=== PATIENT | female | born 1985 | race African-American/Black ===

== ENCOUNTER → 2020-02-05 09:11 | Outpatient (BNVA) | payer OTHER, SELFPAY | PROVIDERS: PCP Nurse Practitioner Family; Referring Provider Nurse Practitioner Family; Visit Provider Advanced Practice Midwife | DX: Z30.09 Encounter for other general counseling and advice on contraception (principal) | CPT/HCPCS: 99212 ==

== ENCOUNTER 2020-02-11 08:41 | Outpatient (REF) | payer OTHER, SELFPAY | END 2020-02-11 08:42 | disposition home or self-care (01) | LOC: HO.LAB 08:41 | PROVIDERS: Visit Provider Internal Medicine | DX: Z20.828 Contact with and (suspected) exposure to other viral communicable diseases (principal) | CPT/HCPCS: C9803; U0003 ==

== ENCOUNTER 2020-02-26 11:22 | Outpatient (REF) | payer OTHER, SELFPAY ==
[2020-02-26 12:47] LABS: MANUAL DIFF FLAG NO
[2020-02-26 13:01] LABS: Basophils Absolute Auto 0.1 X10*3/uL (0.0-0.2); Basophils Percent Auto 0.9 % (0-2); Eosinophils Percent Auto 0.4 % (0-4); Hematocrit 37.7 % (37-47); Hemoglobin 12.9 g/dl (12.0-16.0); Imm Gran Abs Auto 0.02 X10*3/uL (0.00-0.03); Imm Gran Pct Auto 0.2 % (0.0-0.4); Lymphocytes Absolute Auto 2.7 X10*3/uL (1.2-4.9); Lymphocytes Percent Auto 31.8 % (20-40); Mean Corpuscular HGB Conc 34.2 g/dl (31.0-35.0); Mean Corpuscular Hemoglobin 28.9 pg (27.0-33.0); Mean Corpuscular Volume 84.5 fL (80-98); Mean Platelet Volume 9.8 fL (9.4-12.3); Monocytes Absolute Auto 0.6 X10*3/uL (0.1-1.2); Monocytes Percent Auto 7.5 % (2-11); Neutrophils Percent Auto 59.2 % (45-73); Platelet Count 351 X10*3/uL (160-400); Red Blood Count 4.46 X10*6/uL (4.20-5.50); Red Cell Distribution Width 13.7 % (11.0-16.0); White Blood Count 8.5 X10*3/uL (4.8-10.8)
[2020-02-26 13:42] LABS: Anion Gap 12 (12-20); Blood Urea Nitrogen 8 mg/dL (9-16); Calcium 8.9 mg/dL (8.4-10.2); Carbon Dioxide 25 mmol/L (22-29); Chloride 104 mmol/L (96-108); Cholesterol 210 mg/dL; Estimated Glomerular Filt Rate > 60; Glucose Fasting 69 mg/dL (60-99); HDL Cholesterol 54 mg/dL; LDL Cholesterol Calculated 149 mg/dl; Potassium 4.3 mmol/l (3.3-5.1); Sodium 137 mmol/L (135-145); Triglycerides 39 mg/dL
== END 2020-02-26 11:23 | disposition home or self-care (01) ==
LOC: HO.LAB 11:22
PROVIDERS: PCP Nurse Practitioner Family; Visit Provider Nurse Practitioner Family
DX: Z00.00 Encounter for general adult medical examination without abnormal findings (principal)
CPT/HCPCS: 36415; 80048; 80061; 85025

== ENCOUNTER 2020-06-03 15:19 | Outpatient (REF) | payer OTHER, SELFPAY ==
[2020-06-04 18:07] LABS: C. trachomatis RNA TMA NOT DETECTED (NOT DETECTED); N. gonorrhoeae RNA TMA NOT DETECTED (NOT DETECTED)
== END 2020-06-03 15:20 | disposition home or self-care (01) ==
LOC: HO.LAB 15:19
PROVIDERS: PCP Nurse Practitioner Family; Visit Provider Advanced Practice Midwife
DX: Z30.430 Encounter for insertion of intrauterine contraceptive device (principal)
CPT/HCPCS: 36415; 58300; 87491; 87591; J7296

== ENCOUNTER → 2020-07-19 13:53 | Outpatient (BNVA) | payer OTHER, SELFPAY | PROVIDERS: PCP Nurse Practitioner Family; Visit Provider Advanced Practice Midwife | DX: Z30.431 Encounter for routine checking of intrauterine contraceptive device (principal); N89.8 Other specified noninflammatory disorders of vagina | CPT/HCPCS: 99212 ==

== ENCOUNTER 2020-09-18 21:39 | Emergency (ER) | payer OTHER, SELFPAY ==
--- NOTE | 2020-09-18 | ECG_ITS ---
Test Reason : C Blood Pressure : / mmHG Vent. Rate : 083 BPM Atrial Rate : 083 BPM P-R Int : 138 ms QRS Dur : 078 ms QT Int : 360 ms P-R-T Axes : 000 039 013 degrees QTc Int : 423 ms Normal sinus rhythm Normal ECG No previous ECGs available Referred By: Generic ED Physician Electronically Signed By:SARAH HASSAN
[2020-09-18 21:41] VITALS: BP 169/98; PULSE 85; RESP 18; TEMP 36.6; O2SAT 100; BMI 30.7
[2020-09-18 22:02] LABS: MANUAL DIFF FLAG NO
[2020-09-18 22:04] LABS: Basophils Absolute Auto 0.1 X10*3/uL (0.0-0.2); Basophils Percent Auto 0.9 % (0-2); Eosinophils Absolute Auto 0.1 X10*3/uL (0.0-0.4); Eosinophils Percent Auto 0.9 % (0-4); Hematocrit 35.8 % (37-47); Hemoglobin 12.4 g/dl (12.0-16.0); Imm Gran Abs Auto 0.04 X10*3/uL (0.00-0.03); Imm Gran Pct Auto 0.3 % (0.0-0.4); Lymphocytes Absolute Auto 3.7 X10*3/uL (1.2-4.9); Lymphocytes Percent Auto 31.5 % (20-40); Mean Corpuscular HGB Conc 34.6 g/dl (31.0-35.0); Mean Corpuscular Volume 83.8 fL (80-98); Mean Platelet Volume 9.9 fL (9.4-12.3); Monocytes Absolute Auto 0.9 X10*3/uL (0.1-1.2); Neutrophils Absolute Auto 6.8 X10*3/uL (2.0-8.3); Neutrophils Percent Auto 58.4 % (45-73); Platelet Count 290 X10*3/uL (160-400); Red Blood Count 4.27 X10*6/uL (4.20-5.50); Red Cell Distribution Width 13.2 % (11.0-16.0); White Blood Count 11.7 X10*3/uL (4.8-10.8)
[2020-09-18 22:27] LABS: Alanine Aminotransferase 18 U/L (0-31); Albumin Level 4.2 g/dL (3.5-5.0); Alkaline Phosphatase 44 U/L (39-117); Anion Gap 11 (12-20); Aspartate Amino Transferase 16 U/L (5-31); Bilirubin Total 0.2 mg/dL (0.0-1.0); Blood Urea Nitrogen 15 mg/dL (9-16); Calcium 9.2 mg/dL (8.4-10.2); Carbon Dioxide 25 mmol/L (22-29); Chloride 108 mmol/L (96-108); Creatinine Clr Calc Pharmacy 69.2; Estimated Glomerular Filt Rate > 60; Glucose Random 74 mg/dL (60-115); Potassium 4.1 mmol/L (3.3-5.1); Sodium 140 mmol/L (135-145); Total Protein 6.5 g/dL (6.5-8.0)
[2020-09-18 22:29] LABS: Troponin-I High Sensitivity < 3.5 ng/L (<3.5-17.0)
== END 2020-09-18 23:24 | disposition left against medical advice (07) ==
PROVIDERS: Emergency Provider Emergency Medicine; PCP Internal Medicine
DX: R07.9 Chest pain, unspecified (principal); I10 Essential (primary) hypertension; Z79.899 Other long term (current) drug therapy
CPT/HCPCS: 36415; 80053; 84484; 85025; 93005; 99283

== ENCOUNTER 2020-10-03 10:09 | Outpatient (REF) | payer OTHER, SELFPAY ==
[2020-10-03 11:16] LABS: Cholesterol 208 mg/dL; HDL Cholesterol 52 mg/dL; LDL Cholesterol Calculated 140 mg/dl; Triglycerides 82 mg/dL
[2020-10-03 11:38] LABS: Thyroid Stimulating Hormone 0.53 uIU/mL (0.32-4.0)
== END 2020-10-03 10:10 | disposition home or self-care (01) ==
LOC: HO.LAB 10:09
PROVIDERS: PCP Internal Medicine; Visit Provider Internal Medicine
DX: E03.9 Hypothyroidism, unspecified (principal); E11.9 Type 2 diabetes mellitus without complications
CPT/HCPCS: 36415; 80061; 84443

== ENCOUNTER 2020-11-16 14:43 | Outpatient (REF) | payer OTHER, SELFPAY ==
[2020-11-17 04:19] LABS: CT PCR NOT DETECTED (Not Detect.); NG PCR NOT DETECTED (Not Detect.)
[2020-11-17 09:25] LABS: BV Int Neg Control Negative (Negative); BV Int Pos Control Positive (Positive)
== END 2020-11-16 14:44 | disposition home or self-care (01) ==
LOC: HO.LAB 14:43
PROVIDERS: Visit Provider Advanced Practice Midwife
DX: Z01.419 Encounter for gynecological examination (general) (routine) without abnormal findings (principal); N73.9 Female pelvic inflammatory disease, unspecified; Z30.432 Encounter for removal of intrauterine contraceptive device; Z20.2 Contact with and (suspected) exposure to infections with a predominantly sexual mode of transmission
CPT/HCPCS: 58301; 87480; 87491; 87510; 87591; 87660; 96372; 99212; J0696

== ENCOUNTER → 2020-12-06 09:13 | Outpatient (BNVA) | payer OTHER, SELFPAY | PROVIDERS: PCP Internal Medicine; Visit Provider Dietitian, Registered | DX: E66.9 Obesity, unspecified (principal); Z68.31 Body mass index [BMI] 31.0-31.9, adult | CPT/HCPCS: 97802 ==

== ENCOUNTER 2020-12-22 09:54 | Outpatient (REF) | payer OTHER, SELFPAY ==
--- NOTE | ~2020-12-22 | XR_ITS ---
EXAMINATION: XR CALCANEUS, LEFT CLINICAL INFORMATION: Pain in left foot COMPARISON: None TECHNIQUE: Lateral and axial views of the left calcaneus were obtained. FINDINGS: The visualized tarsal bones and metatarsal bases are intact. No fractures. No focal lytic or blastic lesion. The joint spaces are maintained in the visualized ankle and proximal foot. No evidence of tarsal coalition. There is a small plantar calcaneal enthesophyte. No radiopaque foreign body or focal soft tissue swelling. XR/XR calcaneus LT min 2V IMPRESSION: * Small plantar calcaneal enthesophyte is noted. * No evidence of calcaneal fracture.
== END 2020-12-22 09:55 | disposition home or self-care (01) ==
LOC: HO.XRAY 09:54
PROVIDERS: PCP Internal Medicine; Visit Provider Physician Assistant
DX: M79.672 Pain in left foot (principal)
CPT/HCPCS: 73650

== ENCOUNTER 2021-03-23 09:14 | Outpatient (REF) | payer OTHER, SELFPAY ==
[2021-03-23 12:14] LABS: Thyroid Stimulating Hormone 1.09 uIU/mL (0.32-4.0)
[2021-03-24 16:31] LABS: Calcium (PTHI) 9.5 mg/dL (8.6-10.2); PTHI 54 pg/mL (14-64)
[2021-03-25 02:32] LABS: Follicle Stimulating Hormone 5.1 mIU/mL; Lutenizing Hormone 2.1 mIU/mL; Prolactin 6.5 ng/mL
== END 2021-03-23 09:15 | disposition home or self-care (01) ==
LOC: HO.HMGCLDS 09:14
PROVIDERS: PCP Internal Medicine; Visit Provider Physician Assistant
DX: O92.70 Unspecified disorders of lactation (principal)
CPT/HCPCS: 36415; 83001; 83002; 83970; 84146; 84443

== ENCOUNTER 2021-08-01 15:47 | Outpatient (REF) | payer OTHER, SELFPAY ==
--- NOTE | ~2021-08-01 | US_ITS ---
EXAMINATION: ULTRASOUND EXTREMITY NONVASCULAR CLINICAL INFORMATION: Left thigh muscle strain/hamstring injury COMPARISON: None TECHNIQUE: Scale and color imaging of the soft tissues of the left upper posterior thigh using a linear transducer. Comparison imaging of the right thigh was also performed. FINDINGS: No abnormality is evident by ultrasound. No fluid collection, abnormal echotexture or mass is seen. US/US extremity nonvascular IMPRESSION: No abnormality seen by ultrasound.
== END 2021-08-01 15:48 | disposition home or self-care (01) ==
LOC: HO.US 15:47
PROVIDERS: Visit Provider Physician Assistant
DX: S76.312A Strain of muscle, fascia and tendon of the posterior muscle group at thigh level, left thigh, initial encounter (principal)
CPT/HCPCS: 76882

== ENCOUNTER 2021-09-19 12:09 | Outpatient (REF) | payer OTHER, SELFPAY ==
--- NOTE | ~2021-09-19 | XR_ITS ---
EXAMINATION: XR KNEE, RIGHT CLINICAL INFORMATION: Medial meniscal tear. Current injury. COMPARISON: None TECHNIQUE: Three views of the right knee. FINDINGS: No fracture, dislocation, destructive process, or suprapatellar effusion. Small benign oval mineralization or ossification overlies the medial side deep infrapatellar recess. Hoffa's fat pad appears normal. There is spurring from the medial femoral condyle and borderline spurring medial tibial plateau. No joint narrowing or erosive change or chondrocalcinosis. Axial view patella shows no lateralization, tilting, or focal joint narrowing. Small lateral patellar spur. XR/XR knee RT 3V IMPRESSION: -Spurring medial knee joint compartment. -No focal joint narrowing or erosive change. No effusion.
== END 2021-09-19 12:10 | disposition home or self-care (01) ==
LOC: HO.XRAY 12:09
PROVIDERS: PCP Internal Medicine; Visit Provider Physician Assistant
DX: S83.241A Other tear of medial meniscus, current injury, right knee, initial encounter (principal); X58.XXXA Exposure to other specified factors, initial encounter; Y93.9 Activity, unspecified; Y92.9 Unspecified place or not applicable; Y99.8 Other external cause status
CPT/HCPCS: 73562

== ENCOUNTER 2021-09-20 12:41 | Outpatient (REF) | payer OTHER, SELFPAY ==
[2021-09-20 13:37] LABS: Appearance Urine HAZY; Color Urine YELLOW; Glucose Urine UA NEG (NEG); Leukocyte Esterase Urine TRACE (NEG); Nitrite Urine NEG (NEG); Urine Blood NEG (NEG); Urine Ketones NEG (NEG); Urine Protein NEG (NEG-TRACE)
[2021-09-20 13:58] LABS: RBC Urine 0 /HPF (0); Squamous Epithelial Cell Urine 1+ /LPF
[2021-09-20 14:19] LABS: Amphetamine Screen Urine Not Detected (Not Detect); Barbiturates, Urine Not Detected (Not Detect); Benzodiazepines Screen Urine Not Detected (Not Detect); Cannabinoid Screen Urine Not Detected (Not Detect); Cocaine Screen Urine Not Detected (Not Detect); Fentanyl, urine Not Detected (Not Detect); Opiate Screen Urine Not Detected (Not Detect); Phencyclidine Screen Urine Not Detected (Not Detect)
[2021-09-20 14:32] LABS: Alanine Aminotransferase 18 U/L (0-31); Albumin Level 4.4 g/dL (3.5-5.0); Alkaline Phosphatase 38 U/L (39-117); Anion Gap 9 (12-20); Aspartate Amino Transferase 17 U/L (5-31); Bilirubin Total 0.4 mg/dL (0.0-1.0); Blood Urea Nitrogen 12 mg/dL (9-16); Calcium 9.2 mg/dL (8.4-10.2); Carbon Dioxide 27 mmol/L (22-29); Chloride 106 mmol/L (96-108); Estimated Glomerular Filt Rate > 60; Glucose Random 77 mg/dL (60-115); Potassium 4.4 mmol/L (3.3-5.1); Sodium 138 mmol/L (135-145); Total Protein 6.9 g/dL (6.5-8.0)
[2021-09-20 14:38] LABS: Estimated Average Glucose 88 mg/dL; Hemoglobin A1c % 4.7 %
[2021-09-21 08:37] LABS: HIV AB/AG Nonreactive (Nonreactive); HIV Num 1 0.07 S/CO (0.00-0.99)
== END 2021-09-20 12:42 | disposition home or self-care (01) ==
LOC: HO.HMGCLDS 12:41
PROVIDERS: PCP Internal Medicine; Visit Provider Physician Assistant
DX: Z00.00 Encounter for general adult medical examination without abnormal findings (principal)
CPT/HCPCS: 80053; 80307; 81001; 83036; 86900; 86901; 87389

== ENCOUNTER → 2021-09-21 13:10 | Outpatient (REF) | payer OTHER, SELFPAY ==
--- NOTE | 2021-09-21 | ECG_ITS ---
Test Reason : Z00.00 Blood Pressure : / mmHG Vent. Rate : 088 BPM Atrial Rate : 088 BPM P-R Int : 142 ms QRS Dur : 086 ms QT Int : 360 ms P-R-T Axes : 060 040 012 degrees QTc Int : 435 ms Normal sinus rhythm Nonspecific T wave abnormality Abnormal ECG When compared with ECG of 18-SEP-2020 21:48, No significant change was found Referred By: Joss Quiroz Electronically Signed By:C[place]er
--- NOTE | ~2021-09-21 | XR_ITS ---
EXAMINATION: XR CHEST CLINICAL INFORMATION: Adult health examination. COMPARISON: None TECHNIQUE: 2 views of the chest were obtained. FINDINGS: No significant abnormality is noted involving the heart, lungs, mediastinum, or soft tissues. Mild degenerative spondylosis related changes are noted in the spine. The visualized upper abdomen is unremarkable. XR/XR chest 2V IMPRESSION: No radiographic evidence of acute cardiopulmonary disease. 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
== END ==
LOC: HO.CARD 13:10
PROVIDERS: PCP Internal Medicine; Visit Provider Internal Medicine
DX: Z00.00 Encounter for general adult medical examination without abnormal findings (principal); R94.31 Abnormal electrocardiogram [ECG] [EKG]
CPT/HCPCS: 71046; 93005

== ENCOUNTER 2021-10-29 21:45 | Emergency (ER) | payer OTHER, SELFPAY ==
--- NOTE | 2021-10-29 21:49 | ECG_ITS ---
Test Reason : CHEST PAIN Blood Pressure : / mmHG Vent. Rate : 072 BPM Atrial Rate : 072 BPM P-R Int : 158 ms QRS Dur : 086 ms QT Int : 380 ms P-R-T Axes : 016 015 001 degrees QTc Int : 416 ms Normal sinus rhythm Minimal voltage criteria for LVH, may be normal variant ( R in aVL ) Borderline ECG No significant changes when compared with the previous EKG of 21 sep 2021 Referred By: Generic ED Physician Electronically Signed By:SARAH HASSAN
[2021-10-29 21:59] VITALS: BP 155/93; PULSE 85; RESP 18; TEMP 37.1; O2SAT 99; BMI 32.3
--- NOTE | 2021-10-29 22:16 | ED_ITS ---
HPI - Chest Pain General Chief Complaint: Chest Pain Stated Complaint: chest pain Time Seen by Provider: 10/29/21 22:16 Source: patient Mode of arrival: ambulatory Limitations: no limitations History of Present Illness HPI narrative: Patient With history of borderline hypertension no history of diabetes unknown history of known coronary disease comes here for mid chest pain started about 2 hours prior to arrival while [place] working on the computer pain localize mid chest with slight nausea no vomiting no shortness of breath no diaphoresis patient never had similar pain in the past Related Data Previous Rx's Medication Instructions Recorded atenolol 100 mg tablet 100 mg PO DAILY #30 tabs 09/19/20 norethindrone (contraceptive) 0.35 0.35 mg PO DAILY #84 tabs 11/16/20 mg tablet ibuprofen 600 mg tablet 600 mg PO Q6H PRN pain #20 tabs 10/30/21 Allergies Allergy/AdvReac Type Severity Reaction Status Date / Time No Known Allergies Allergy Verified 12/22/20 09:30 Review of Systems Review of Systems: Yes all other systems are reviewed and are negative [facility] [place] Past Medical History Medical History Encounter for intrauterine device placement Hypertension Surgical History History of mandibular surgery Family History Family History Father No problems noted. Mother No problems noted. Social History Social History Housing: House Alcohol intake: current Alcohol intake frequency: holidays/special occasions only Patient Tobacco Use Status: Former Tobacco user Tobacco use type: Cigarette Second Hand Smoke Exposure: No Advance Directives: No Advance Directives Information Provided: Yes service: Yes Current occupational status: employed Gender identity: Female Physical Exam Vital Signs: Vital Signs: Last Vital Signs Temp 98.8 F 10/29/21 23:11 Pulse 72 10/29/21 23:11 Resp 22 H 10/29/21 23:11 BP 150/75 H 10/29/21 23:11 Pulse Ox 100 10/29/21 23:11 O2 Del Method 10/29/21 23:11 BMI result Body Mass Index 32.3 Appearance: Alert. Oriented X3. No acute distress. Eyes: No pallor or icterus ENT: Pharynx normal. Oral Mucosa moist Neck: Normal inspection. Neck supple. CVS: Normal heart rate and rhythm. Pulses normal. Respiratory: Chest wall tenderness in the 2nd intercostal space bilateral, No respiratory distress. Equal air entry bilateral, no wheezing/rales/rhonchi Abdomen: Soft and nontender. Bowel sounds are present, no mass palpable, no CVA tenderness Skin: Skin warm and dry. Normal skin color. Normal skin turgor. Extremities: No lower extremity edema. No calf tenderness Neuro: Oriented X 3. No motor deficit. MDM - Chest Pain MDM Narrative Medical decision making narrative: Patient clinically with costochondritis heart score of 1 normal troponin no ischemic changes EKG will discharge patient home advised to take ibuprofen Medical Records Data Attestation: I reviewed the patient's medical records. Lab Data Attestation: I reviewed the patient's lab results. Result diagrams: 10/29/21 23:19 10/29/21 23:19 Labs: Lab Results 10/29/21 10/29/21 10/29/21 Range/Units 23:19 23:19 23:19 WBC 10.9 H (4.8-10.8) X10*3/uL RBC 4.27 (4.20-5.50) X10*6/uL Hgb 12.5 (12.0-16.0) g/dl Hct 35.3 L (37.0-47.0) % MCV 82.7 (80.0-98.0) fL MCH 29.3 (27.0-33.0) pg MCHC 35.4 H (31.0-35.0) g/dl RDW 13.2 (11.0-16.0) % Plt Count 306 (160-400) X10*3/uL MPV 9.4 (9.4-12.3) fL Immature Gran % (Auto) 0.3 (0.0-0.4) % Neut % (Auto) 63.1 (45-73) % Lymph % (Auto) 27.9 (20-40) % Smyth % (Auto) 7.1 (2-11) % Eos % (Auto) 0.7 (0-4) % Baso % (Auto) 0.9 (0-2) % Lymph # (Auto) 3.0 (1.2-4.9) X10*3/uL Smyth # (Auto) 0.8 (0.1-1.2) X10*3/uL Eos # (Auto) 0.1 (0.0-0.4) X10*3/uL Baso # (Auto) 0.1 (0.0-0.2) X10*3/uL Abs Immat Gran (auto) 0.03 (0.00-0.03) X10*3/uL Absolute Neuts (auto) 6.8 (2.0-8.3) x10*3/uL Absolute Nucleated RBC 0.000 (0.0-0.012) X10*3/uL Nucleated RBC % (auto) 0.0 (0.0-0.2) /100WBC Sodium 134 L (135-145) mmol/L Potassium 3.7 (3.3-5.1) mmol/L Chloride 105 (96-108) mmol/L Carbon Dioxide 24 (22-29) mmol/L Anion Gap 9 L (12-20) BUN 11 (9-16) mg/dL Creatinine 0.69 (0.5-1.4) mg/dL Estim Creat Clear Calc 95.9 Estimated GFR > 60 Random Glucose 93 (60-115) mg/dL Calcium 9.0 (8.4-10.2) mg/dL Troponin I High Sens < 3.5 (<3.5-17.0) ng/L ECG Data ECG #1: Attestation: I personally reviewed and interpreted this ECG as follows: Interpretation: Notes and rhythm heart rate 88 beats per minute normal interval normal axis and no acute ST-T no acute ischemia Scores Heart Score History: -0- slightly suspicious ECG: -0- normal Age: -0- < or = 45 Risk factory: -1- 1 or 2 risk factors Troponin: -0- < or = normal limit Score: 1 Risk: 1.7% Discharge Plan Discharge Clinical Impression: Chest pain, Acute costochondritis Patient Disposition: Home, Self-Care Instructions: Chest Pain (ED), Costochondritis (ED) Additional Instructions: Take ibuprofen as prescribed Follow with PCP if not better for further evaluation including stress test Prescriptions: New ibuprofen 600 mg tablet 600 mg PO Q6H PRN (Reason: pain) Qty: 20 0RF No Action atenolol 100 mg tablet 100 mg PO DAILY Qty: 30 5RF norethindrone (contraceptive) 0.35 mg tablet 0.35 mg PO DAILY Qty: 84 4RF
[2021-10-29 23:11] VITALS: BP 150/75; PULSE 72; RESP 22; TEMP 37.1; O2SAT 100
[2021-10-29 23:14] VITALS: BP 150/75; PULSE 77; RESP 18; O2SAT 97
[2021-10-29 23:24] LABS: Basophils Absolute Auto 0.1 X10*3/uL (0.0-0.2); Basophils Percent Auto 0.9 % (0-2); Eosinophils Absolute Auto 0.1 X10*3/uL (0.0-0.4); Eosinophils Percent Auto 0.7 % (0-4); Hematocrit 35.3 % (37.0-47.0); Hemoglobin 12.5 g/dl (12.0-16.0); Imm Gran Abs Auto 0.03 X10*3/uL (0.00-0.03); Imm Gran Pct Auto 0.3 % (0.0-0.4); Lymphocytes Percent Auto 27.9 % (20-40); MANUAL DIFF FLAG NO; Mean Corpuscular HGB Conc 35.4 g/dl (31.0-35.0); Mean Corpuscular Hemoglobin 29.3 pg (27.0-33.0); Mean Corpuscular Volume 82.7 fL (80.0-98.0); Mean Platelet Volume 9.4 fL (9.4-12.3); Monocytes Absolute Auto 0.8 X10*3/uL (0.1-1.2); Monocytes Percent Auto 7.1 % (2-11); Neutrophils Absolute Auto 6.8 x10*3/uL (2.0-8.3); Neutrophils Percent Auto 63.1 % (45-73); Platelet Count 306 X10*3/uL (160-400); Red Blood Count 4.27 X10*6/uL (4.20-5.50); Red Cell Distribution Width 13.2 % (11.0-16.0); White Blood Count 10.9 X10*3/uL (4.8-10.8)
[2021-10-29 23:46] LABS: Troponin-I High Sensitivity < 3.5 ng/L (<3.5-17.0)
[2021-10-29 23:47] LABS: Anion Gap 9 (12-20); Blood Urea Nitrogen 11 mg/dL (9-16); Carbon Dioxide 24 mmol/L (22-29); Chloride 105 mmol/L (96-108); Creatinine Clr Calc Pharmacy 95.9; Estimated Glomerular Filt Rate > 60; Glucose Random 93 mg/dL (60-115); Potassium 3.7 mmol/L (3.3-5.1); Sodium 134 mmol/L (135-145)
[2021-10-30] MEDS: Ibuprofen 600 MG TABLET PO (01:09)
[2021-10-30 01:13] VITALS: BP 108/54; PULSE 71; RESP 16; O2SAT 95
== END 2021-10-30 01:20 | disposition home or self-care (01) ==
PROVIDERS: Emergency Provider Internal Medicine
DX: R07.89 Other chest pain (principal); M94.0 Chondrocostal junction syndrome [Tietze]; Z87.891 Personal history of nicotine dependence; Z79.899 Other long term (current) drug therapy
CPT/HCPCS: 36415; 80048; 84484; 85025; 93005; 99284

== ENCOUNTER 2021-12-28 14:58 | Outpatient (REF) | payer OTHER, SELFPAY ==
[2021-12-28 15:18] LABS: Appearance Urine Hazy; Glucose Urine UA 100 mg/dL (Negative); Leukocyte Esterase Urine Large (3+) (Negative); UMIC TRIGGER UACC YES; Urine Blood Negative (Negative); Urine Ketones Negative (Negative); Urine Protein 30 (1+) mg/dL (Neg-Trace)
[2021-12-28 15:21] LABS: Color Urine ORANGE; Nitrite Urine Positive (Negative)
[2021-12-28 15:32] LABS: Bacteria Urine 4+ (None Seen); Hyaline Casts Urine 0-2 /LPF (0-2); UACC Culture Trigger YES
== END 2021-12-28 14:59 | disposition home or self-care (01) ==
LOC: HO.HMGCLNP 14:58
PROVIDERS: Visit Provider Physician Assistant Medical
DX: R30.0 Dysuria (principal)
CPT/HCPCS: 81001; 87086; 87088; 87186

== ENCOUNTER 2022-01-11 08:40 | Outpatient (REF) | payer OTHER, SELFPAY ==
[2022-01-12 06:22] LABS: CT PCR NOT DETECTED (Not Detect.); NG PCR NOT DETECTED (Not Detect.)
[2022-01-14 14:03] LABS: HPV mRNA E6/E7 rflx Not Detected (Not Detected)
== END 2022-01-11 08:41 | disposition home or self-care (01) ==
LOC: HO.LNP 08:40
PROVIDERS: Visit Provider Obstetrics & Gynecology
DX: Z30.09 Encounter for other general counseling and advice on contraception (principal); N93.9 Abnormal uterine and vaginal bleeding, unspecified
CPT/HCPCS: 87491; 87591; 87624; 88142; 99212

== ENCOUNTER 2022-01-23 14:20 | Outpatient (REF) | payer OTHER, SELFPAY | END 2022-01-23 14:21 | disposition home or self-care (01) | LOC: HO.LNP 14:20 | PROVIDERS: Visit Provider Obstetrics & Gynecology | DX: Z32.02 Encounter for pregnancy test, result negative (principal); Z30.430 Encounter for insertion of intrauterine contraceptive device; N93.9 Abnormal uterine and vaginal bleeding, unspecified | CPT/HCPCS: 58100; 58300; 81025; 88305; J7298 ==

== ENCOUNTER 2022-01-23 14:55 | Outpatient (REF) | payer OTHER, SELFPAY ==
[2022-01-23 15:36] LABS: Hematocrit 37.2 % (37.0-47.0); Hemoglobin 12.8 g/dl (12.0-16.0); Mean Corpuscular HGB Conc 34.4 g/dl (31.0-35.0); Mean Corpuscular Hemoglobin 27.8 pg (27.0-33.0); Mean Corpuscular Volume 80.9 fL (80.0-98.0); Mean Platelet Volume 9.9 fL (9.4-12.3); Platelet Count 351 X10*3/uL (160-400); Red Cell Distribution Width 13.9 % (11.0-16.0); White Blood Count 11.2 X10*3/uL (4.8-10.8)
[2022-01-23 15:37] LABS: Appearance Urine Clear; Color Urine Yellow; Glucose Urine UA Negative (Negative); Leukocyte Esterase Urine Negative (Negative); Nitrite Urine Negative (Negative); PH 6.5 (5.0-9.0); Specific Gravity - Urine 1.015 (1.005-1.025); Urine Blood Negative (Negative); Urine Ketones Negative (Negative); Urine Protein Negative (Neg-Trace)
[2022-01-23 16:13] LABS: HCG Quantitative < 2 mIU/mL; TSH reflex Free T4 0.66 uIU/mL (0.32-4.0)
== END 2022-01-23 14:56 | disposition home or self-care (01) ==
LOC: HO.LAB 14:55
PROVIDERS: Physician Assistant Medical; PCP Internal Medicine; Visit Provider Obstetrics & Gynecology
DX: R30.0 Dysuria (principal); N93.9 Abnormal uterine and vaginal bleeding, unspecified
CPT/HCPCS: 36415; 81003; 84443; 84702; 85027

== ENCOUNTER 2022-01-25 13:03 | Outpatient (REF) | payer OTHER, SELFPAY ==
--- NOTE | ~2022-01-25 | US_ITS ---
EXAMINATION: US PELVIS COMPLETE US PELVIS ENDOVAGINAL CLINICAL INFORMATION: Abnormal uterine and vaginal bleeding. COMPARISON: None. TECHNIQUE: Transabdominal and transvaginal images of the pelvis were obtained. FINDINGS: UTERUS: Anteverted. Normal size and contour, measuring 7.3 x 5.2 x 5.0 cm (cervix to fundus x AP x transverse). Uniform, homogeneous endometrium measures 0.5 cm in width. An IUD is seen in the endometrial canal. The most cephalad aspect of the IUD 1 cm from the fundal endometrial contour. RIGHT OVARY: Normal size and echogenicity measuring 3.8 x 2.8 x 3.6 cm. LEFT OVARY: Normal size and echogenicity measuring 3.8 x 2.0 x 2.2 cm. FREE FLUID: No pelvic free fluid. US/US pelvic and transvaginal IMPRESSION: An IUD is in place. The most cephalad aspect of the IUD is 1 cm from the fundal endometrial contour. It does not appear to extend into the endocervical canal.
== END 2022-01-25 13:04 | disposition home or self-care (01) ==
LOC: HO.HMGCX 13:03
PROVIDERS: PCP Internal Medicine; Visit Provider Obstetrics & Gynecology
DX: N93.9 Abnormal uterine and vaginal bleeding, unspecified (principal)
CPT/HCPCS: 76830; 76856

== ENCOUNTER → 2022-01-30 14:34 | Outpatient (BNVA) | payer OTHER, SELFPAY | PROVIDERS: PCP Internal Medicine; Visit Provider Obstetrics & Gynecology | DX: N93.9 Abnormal uterine and vaginal bleeding, unspecified (principal); Z97.5 Presence of (intrauterine) contraceptive device | CPT/HCPCS: 99212 ==

== ENCOUNTER 2022-02-16 07:41 | Day surgery (SDC) | payer OTHER, SELFPAY ==
[2022-02-12 10:57] VITALS: BMI 34.3
--- NOTE | 2022-02-14 10:39 | HO.ANESPROP2 ---
Documented by User: Liseth Bardales NP 02/14/22 10:40 HPI - Anesthesia Eval Consult details Narrative: 36yo F for D&C Hysteroscopy,poss polypectomy/myomectomy,mirena removal and re-inserion PMFSH Active Problems Active Problems: All Active Problems (Updated 01/30/22 @ 15:18 by Prince Joshi MD) Family planning (Acute) Abnormal uterine bleeding (AUB) (Acute) Pain of left heel (Acute) Pelvic inflammatory disease (PID) (Acute) Obesity (Acute) Vaginal discharge (Acute) IUD surveillance (Acute) Encounter for intrauterine device placement (Acute) Hypertension (Acute) Past Medical History Medical History Encounter for intrauterine device placement Hypertension Family History Family History Father No problems noted. Mother No problems noted. Surgical History Surgical History History of mandibular surgery Social History Social History Housing: House Alcohol intake: current Alcohol intake frequency: holidays/special occasions only Patient Tobacco Use Status: Former Tobacco user Tobacco use type: Cigarette Second Hand Smoke Exposure: No service: Yes Current occupational status: employed Gender identity: Female Meds Allergies Allergy/AdvReac Type Severity Reaction Status Date / Time No Known Allergies Allergy Verified 02/16/22 08:40 Home Medications Medication Instructions Recorded Confirmed Last Taken Type baclofen 10 mg tablet 10 mg PO BID 12/28/21 02/12/22 Unknown History meloxicam 15 mg tablet 15 mg PO DAILY 12/28/21 02/12/22 Unknown History trazodone 50 mg tablet 50 mg PO BID PRN Sleep 01/11/22 02/12/22 Unknown History levonorgestrel 20 mcg/24 hours (8 intrauterine 01/30/22 Unknown History yrs) 52 mg intrauterine device (Mirena) Exam Exam Date and Time: February 14, 2022 1039 Height,Weight and Vital Signs: Height 4 ft 11 in Weight 77.111 kg Pertinent Lab Results Pertinent Lab Results: Laboratory Tests 07/24/22 10/18/22 23:19 15:03 WBC 11.2 H Hgb 12.8 Hct 37.2 Plt Count 351 Sodium 134 L Potassium 3.7 Chloride 105 Carbon Dioxide 24 BUN 11 Creatinine 0.69 Assessment and Plan Assessment Anesthesia Assessment: Chart Reviewed Documented by User: La Nena Alberts MD 02/16/22 09:18 [facility] Past Medical History Medical History Encounter for intrauterine device placement Hypertension Functional capacity: independent ambulation Patient : No Family History Family History Father No problems noted. Mother No problems noted. Family history of problems with anesthesia: No Surgical History Surgical History History of mandibular surgery History of Problems with Anesthesia: No Social History Social History Housing: House Alcohol intake: current Alcohol intake frequency: holidays/special occasions only Patient Tobacco Use Status: Former Tobacco user Tobacco use type: Cigarette Second Hand Smoke Exposure: No service: Yes Current occupational status: employed Gender identity: Female Meds Allergies Allergy/AdvReac Type Severity Reaction Status Date / Time No Known Allergies Allergy Verified 02/16/22 08:40 Home Medications Medication Instructions Recorded Confirmed Last Taken Type baclofen 10 mg tablet 10 mg PO BID 12/28/21 02/12/22 Unknown History meloxicam 15 mg tablet 15 mg PO DAILY 12/28/21 02/12/22 Unknown History trazodone 50 mg tablet 50 mg PO BID PRN Sleep 01/11/22 02/12/22 Unknown History levonorgestrel 20 mcg/24 hours (8 intrauterine 01/30/22 Unknown History yrs) 52 mg intrauterine device (Mirena) Exam Airway Mallampati Class: II TM Dist: >3cm Neck ROM: Full Heart: RRR Lungs: CTA Assessment and Plan Final Anesthetic Review Family History of Problems with Anesthesia: No History of Problems with Anesthesia: No ASA Class: II Final Preanesthetic Review: No Changes in Pt Med Stat, Meds/Allgs Chart Reviewed, Consent Obtained/Reviewed and Anes Risks/Benef Reviewed Patient Risk: Low Procedure Risk: Low Anesthetic Plan Anesthetic Plan: GA Disposition: Standard PACU
[2022-02-16] VITALS (8 sets, daily range): BP systolic 135–156; BP diastolic 81–98; PULSE 63–80; RESP 16–18; TEMP 36.3–36.6; O2SAT 98–100
[2022-02-16] MEDS: Lactated Ringers 1,000 ML 100 ML IVCONT (08:25)
[2022-02-16 08:52] LABS: UPreg QC Valid YES; Urine Pregnancy NEGATIVE (NEGATIVE)
--- NOTE | 2022-02-16 08:53 | MHC.SHP ---
Pre-Procedural Eval Section A Date of Service: 02/16/22 The patient is an INPATIENT: No Changes since office visit: No Cold of Flu in the past 2 weeks, No New Medical Problems, No Changes in Medication and No Patient answered all questions The History & Physical has been completed within 30 days and I have reviewed it.: Yes Section B Chief Complaint: Abnormal uterine and vaginal bleeding, unspecified Allergies: Allergies Allergy/AdvReac Type Severity Reaction Status Date / Time No Known Allergies Allergy Verified 02/16/22 08:40 Plan Diagnosis/Plan: Unchanged I have reviewed the history and physical and performed a pertinent physical examination on my patient. No changes have occurred unless specified.
--- NOTE | 2022-02-16 10:51 | P.BOP_ITS ---
Brief Operative Note Date of Service: 02/16/22 Pre-op diagnosis: Abnormal uterine bleeding, endometrial polyp Post-op diagnosis: same Procedure: Hysteroscopy D&C, Polypectomy with IUD removal and Mirena IUD insertion Surgeon: Prince Joshi MD Anesthesia: GLMA Was an Stenotype Machine Operator used for this Procedure?: No Estimated blood loss (mL): 0 Pathology: other (Endometrial Scrapping. Polyp) Condition: stable Disposition: PACU
--- NOTE | 2022-02-16 10:52 | P.OP_ITS ---
Operative Note Operative Note Date of Service: 02/16/22 Narrative: Preop Diagnosis: Abnormal uterine bleeding with Endometrial polyp Operation: Diagnostic Hysteroscopy, Dilataion & Curettage and polypectomy with Mirena IUD removal and reinsertion Post Op Diagnosis: Endometrial Polyp QBL: Minimal Anesthesia: GLMA Surgeon: Prince Joshi MD [employer] Supervisor: None Complication: None Pathology: Endometrial Scrapings, Endometrial polyp Procedure: The patient was put in the dorsal lithotomy position, scrubbed, and draped in the usual manner. A sterile speculum was inserted in the patient's vagina. The IUD thread was identified at the cervical os, using long Abril clamp the Mirena IUD was taken out result complications. The anterior lip of the cervix was then grasped with a single tooth tenaculum. The cervix was dilated up to 5 mm, then the scope was inserted in the patient's uterus. Inspection revealed endometrial polyp. The Myosure Reach device was used; it was introduced through the operative channel and polypectomy done with no complications. The scope was then taken out from the uterine cavity, sharp curettings was carried on with moderate amount of tissues retrieved. At the end of the procedure, all instruments were taken out of the patient uterine and vaginal cavity. . A sound was advanced through the external and internal os until it reached the fundus of the uterus, the depth was 8 cm. The sound was then withdrawn. The IUD was loaded in a sterile manner and advanced into position. The string was visualized and cut to 3 cm. The single tooth tenaculum was removed and homeostasis was assured using pressure,. The patient tolerated the procedure well and was transferred to the PACU in a stable condition.
[2022-02-16] MEDS: oxyCODONE HCl Immed Release 5 MG TABLET PO (11:50)
--- NOTE | 2022-02-16 12:31 | HO.POSTANES ---
Post Anesthesia Evaluation Post Anesthesia Evaluation Vital Signs: Vital Signs Temp Pulse Resp BP Pulse Ox O2 Del Method 02/16/22 11:50 97.4 F 74 16 156/81 H 99 Room Air 02/16/22 11:35 97.4 F 64 18 143/83 H 99 Room Air 02/16/22 11:20 97.5 F 63 18 153/91 H 99 Room Air 02/16/22 11:15 72 18 151/84 H 100 Room Air 02/16/22 11:10 80 16 135/96 H 99 Room Air 02/16/22 11:05 98 F 76 16 147/91 H 99 Room Air 02/16/22 09:25 97.9 F 79 18 146/98 H 98 Room Air 02/16/22 08:25 97.9 F 79 18 146/98 H 98 Room Air Anesthesia: General LMA Mental Status: Awake Pain Control: Satisfactory Nausea/Vomiting: None Hydration: Adequate Anesthesia-Related Issues: No Anes. Related Issues
== END 2022-02-16 12:55 | disposition home or self-care (01) ==
PROVIDERS: Nurse Practitioner; PCP Internal Medicine; Visit Provider Obstetrics & Gynecology
PROC: 0UDB8ZZ Extraction of Endometrium, Via Natural or Artificial Opening Endoscopic (ICD-10-PCS; CPT 58558; principal; 2022-02-16 09:30)
DX: N93.9 Abnormal uterine and vaginal bleeding, unspecified (principal); N84.0 Polyp of corpus uteri; Z30.433 Encounter for removal and reinsertion of intrauterine contraceptive device; I10 Essential (primary) hypertension; Z87.891 Personal history of nicotine dependence; Z79.899 Other long term (current) drug therapy
CPT/HCPCS: 58558; 58300; 81025; 88305; J1100; J2250; J2405; J3010

== ENCOUNTER → 2022-03-20 13:01 | Outpatient (BNVA) | payer OTHER, SELFPAY | PROVIDERS: PCP Internal Medicine; Visit Provider Obstetrics & Gynecology | DX: Z30.431 Encounter for routine checking of intrauterine contraceptive device (principal); N93.9 Abnormal uterine and vaginal bleeding, unspecified | CPT/HCPCS: 99212 ==